=== PATIENT | female | born 1990 | race Two or more races ===

== ENCOUNTER 2018-08-12 06:34 | Inpatient (IN) | payer OTHER ==
[2018-08-10 16:50] VITALS: BMI 18.5
--- NOTE | 2018-08-11 11:25 | HP ---
Admitting History and Physical - Primary Care Physician PCP: Bartolo Orozco - Admission Chief Complaint: right breast abscess with necrotic tissue History of Present Illness: 27 year old nulliparous premenapausal female who was found to be pancytopenic and was admitted to [facility] 05/2018 and was found to be CMV + and was placed on Neuprogen and cipro. She developed right breast mastitis and was told to use warm compresses and sent home but ended up getting burned and transfered to [facility]. She was treated with vanco,acyclovir and antifungal and did have improvement in her blood counts. She underwent an I and D of right breast at [facility] and there was no acute abscess but imflamatory tissue negative cultures. The wound became ischemic and developed eschar over nipple and areolar complex. and she was found to have a lupus and antiphospholipid antibody and was placed on tapering steroids,bactrim, plaquenel and is on coumadin and ASA . She has received Hyperbaric treatments with some improvement and is her for debridement of right breast and placement of wound vac by Dr Tovar. History Source: Patient Limitations to Obtaining History: No Limitations - Past Medical History ...LMP: 07/15/18 Additional Past Medical History: MONICA positive pancytopenia,SCV trombosis renal infarct, CMV positive lupus with antiphospholipid syndrome - Past Surgical History Past Surgical History: Yes: Appendectomy (at 10 yrs old) Additional Past Surgical History: I and D breast 05/2018 - Smoking History Smoking history: Never smoked - Alcohol/Substance Use Hx Alcohol Use: No Home Medications - Allergies Allergies/Adverse Reactions: Allergies Allergy/AdvReac Type Severity Reaction Status Date / Time vancomycin Allergy Itching Verified 08/10/18 16:50 - Home Medications Home Medications (free text): fluconozole ASA acyclovir folic acid prednisone, bactrim Hydrochloroquinine, warfarin pantaprozole Family Disease History - Family Disease History Family History: Denies Physical Examination Constitutional: Yes: Well Nourished Breast(s): Yes: Other ( A cup breast with obvious necrosis eschar in central region with entire loss of nipple areolar complex. No signs of infection but open wounds superior and inferior aspect of right breast) Problem List - Problems (1) Abscess of right breast Code(s): N61.1 - ABSCESS OF THE BREAST AND NIPPLE Assessment/Plan Right breast debridement and wound vac with Dr Tovar
[2018-08-12 07:01] LABS: BASO % 0.8 % (0-2.0); EOS % 1.4 % (0-4.5); HEMATOCRIT 33.4 % (32.4-45.2); HEMOGLOBIN 11.5 GM/dL (10.7-15.3); LYMPH % 44.8 % (8-40); MCHC 34.5 g/dl (32.0-36.0); MEAN PLT VOLUME 7.7 fl (7.5-11.1); MONO % 10.9 % (3.8-10.2); NEUT % 42.1 % (42.8-82.8); PLATELET COUNT 255 K/MM3 (134-434); RBC 4.12 M/mm3 (3.60-5.2); RDW 17.6 % (11.6-15.6)
[2018-08-12 07:28] LABS: INR 1.92 (0.83-1.09); PROTHROMBIN TIME (PATIENT) 22.8 SEC (9.7-13.0)
[2018-08-12] MEDS ORDERED: MIDAZOLAM HCL 2 MG/2 ML SINGLE DOSE VIAL ONE ×2 (08:12)
[2018-08-12] MEDS ORDERED: DEXTROSE 5%-0.45% SALINE 1,000 ML IV SCH (08:45)
[2018-08-12] MEDS ORDERED: ONDANSETRON 4 MG/2 ML VIAL IVPUSH PRN ×2 (08:58→10:52)
[2018-08-12] MEDS ORDERED: LACTATED RINGERS SOLUTION 1,000 ML IV SCH (09:00)
[2018-08-12] MEDS ORDERED: PROPOFOL 20 ML ONE (09:11)
[2018-08-12] MEDS ORDERED: ceFAZolin SODIUM 1 GM VIAL IVPB ONE (09:19)
[2018-08-12] MEDS ORDERED: ceFAZolin SODIUM 1 GM VIAL ONE (09:24)
[2018-08-12 11:04] LABS: ACTIVATED PTT 73.8 SECONDS (25.2-36.5)
--- NOTE | 2018-08-12 11:14 | OP ---
DATE OF OPERATION: 08/12/2018 PREOPERATIVE DIAGNOSES: Right breast necrosis and infection. POSTOPERATIVE DIAGNOSES: Right breast necrosis and infection. PROCEDURE: Incision sharply and debridement of right breast with vacuum-assisted closure dressing application. ANESTHESIA: General, laryngeal mask airway anesthesia. PRIMARY SURGEON: Issac Orozco MD. PLASTIC SURGEON FOR VACUUM-ASSISTED CLOSURE DRESSING PLACEMENT: Lexx Tovar MD COMPLICATIONS: There were no complications. Briefly the patient is a 27-year-old nulliparous premenopausal female of [place] descent. The patient was diagnosed with antiphospholipid antibody syndrome and developed fevers, fatigue and pancytopenia in May 2018. 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 She underwent an incision and drainage at [facility] by another surgeon. However, the wound never healed. She developed central right breast necrosis. In the meantime she was being treated for the antiphospholipid antibody syndrome and was placed on steroids and her pancytopenia resolved and her general health improved. She had some stable necrosis of the right breast and was getting hyperbaric oxygen treatments; however, developed some sepsis with positive blood cultures and it was felt that debridement of the necrotic right breast should be performed. The patient was brought in through same day surgery on August 12, 2018, to [facility]. In the holding area site verification was made and informed consent was obtained. The patient was brought into the operating room and laid on the OR table in a supine position. Venodynes were placed on the lower extremities. She received a gram of Ancef prior to incision. She underwent general laryngeal mask airway anesthesia. The right breast was sterilely prepped and draped in the usual fashion. We sharply debrided the central aspect of the entire right breast removing the entire nipple-areolar complex and tissue was noted to be necrotic all the way down to the chest wall. Tissue was debrided back to good bleeding tissue and hemostasis was achieved using electrocautery. The tissue was all sent to Pathology for evaluation. At this point, Dr. Lexx Tovar became the primary surgeon. He performed the VAC dressing placement on the right breast. The patient tolerated the procedure well and will be recovered and admitted for a 23-hour admit to arrange social media executive for VAC wound care. The patient had an estimated blood loss of about 10 mL and was hemodynamically stable throughout the entire case. All sponge and needle counts were correct at the end of the case. ISSAC OROZCO M.D. [id number]
[2018-08-12 11:51] LABS: ACANTHOCYTES 0; ANISOCYTOSIS 0; HELMET CELLS 0; HOWELL-JOLLY BODIES 0; MACROCYTOSIS 0; OVALOCYTE 0; PLATELET ESTIMATE NORMAL; ROULEAU 0; SICKELED CELLS 0; TARGET CELLS 0; TEAR DROP CELLS 0; TOXIC GRANULATION 0
[2018-08-12] MEDS ORDERED: ACETAMINOPHEN 325 MG TABLET (FP) PO PRN (12:18)
[2018-08-12] MEDS ORDERED: oxyCODONE HCL 5 MG TABLET PO PRN (12:23)
--- NOTE | 2018-08-12 13:25 | OP ---
DATE OF OPERATION: 08/12/2018 TITLE OF PROCEDURE: Right breast debridement and negative wound pressure dressing application. ATTENDING SURGEON: Giselle Tovar MD LUNCHROOM AIDE: Bartolo Orozco MD PREOPERATIVE DIAGNOSIS: Centrally necrotic breast tissue on the right breast. POSTOPERATIVE DIAGNOSIS: Centrally necrotic breast tissue on the right breast. ANESTHESIA: General endotracheal. Patient is seen in the holding area. This is a consultation from Dr. Bartolo Orozco. The history is that this is a 27-year-old female with systemic lupus, who after a series of complicated events to the right breast, suffered a necrosis of the nipple-areola and central mound of the right breast. This has been treated with hypobaric oxygen and dressing changes. However, the patient has had several episodes of wound infection requiring inpatient stay and IV antibiotics, and recommendation by Dr. Orozco and the treating physicians is for debridement of the necrotic wound. Upon assessment, I agree. Risks, benefits, and alternatives to the family are explained, understood. They agree to proceed. DESCRIPTION OF PROCEDURE: Patient is placed in a supine position. A gram of Ancef is given preoperatively. Sequential compression stockings are applied preoperatively. She is prepped and draped in standard surgical fashion. A timeout is called. Patient, procedure, sites, and sides are verified. Dr. Orozco and I then assessed the clearly demarcated, nonviable tissue. The eschar was debrided and sent for surgical pathology. The excision was performed with a cold scalpel, and the extent of the incision was viable-appearing, bleeding tissue. Grossly necrotic tissue is all that is removed. The hemostasis is meticulously achieved, and the wound is copiously irrigated with normal saline. A VAC dressing is then applied and placed to 125 mm of continuous low suction with a good seal. The patient is awoken from anesthesia, having tolerated the procedure well, transferred to Recovery without complication. GISELLE TOVAR M.D. [id number]
[2018-08-12] MEDS ORDERED: CEFUROXIME AXETIL 250 MG TABLET PO SCH (15:00)
[2018-08-12] MEDS ORDERED: predniSONE 5 MG TABLET (UD) PO SCH (15:00)
[2018-08-12] MEDS: CEFUROXIME AXETIL 250 MG TABLET PO SCH (21:37)
[2018-08-13] MEDS: DEXTROSE 5%-0.45% SALINE 1,000 ML IV SCH (04:15)
[2018-08-13] MEDS: LACTATED RINGERS SOLUTION 1,000 ML IV SCH (04:16)
--- NOTE | 2018-08-13 07:38 | PN ---
Progress Note (short form) - Note Progress Note: POD 1 post debridement and VAC Pain is well controlled, no cellulitis, good seal Case management to arrange for 3x/wk vac changes at home Plan for discharge today with f/u me in 2 weeks
[2018-08-13] MEDS ORDERED: ENOXAPARIN NA (PORCINE) 40 MG/0.4 ML DISP.SYRIN SQ SCH (08:00)
--- NOTE | 2018-08-13 09:57 | PN ---
Progress Note, Physician Chief Complaint: S/P debridement of necrotic wound of right breast POD#1 History of Present Illness: Patient was seen today at the bedside and reports pain in the right breast otherwise without any other complaints. - Current Medication List Current Medications: Active Medications Acetaminophen (Tylenol -) 325 mg PO Q4H PRN PRN Reason: PAIN LEVEL 1-5 Cefuroxime Axetil (Ceftin -) 250 mg PO BID [facility] Last Admin: 08/12/18 21:37 Dose: 250 mg Enoxaparin Sodium (Lovenox -) 40 mg SQ DAILY [facility] Dextrose/Sodium Chloride (D5-1/2ns -) 1,000 mls @ 100 mls/hr IV ASDIR [facility] Last Admin: 08/13/18 04:15 Dose: 100 mls/hr Lactated Ringer's (Lactated Ringers Solution) 1,000 mls @ 125 mls/hr IV ASDIR [facility] Last Admin: 08/13/18 04:16 Dose: Not Given Ondansetron HCl (Zofran Injection) 4 mg IVPUSH Q6H PRN PRN Reason: NAUSEA AND/OR VOMITING Stop: 08/13/18 10:51 Oxycodone HCl (Roxicodone -) 5 mg PO Q4H PRN PRN Reason: PAIN LEVEL 1-5 Prednisone (Deltasone -) 5 mg PO DAILY [facility] - Objective Vital Signs: Vital Signs Temperature 98.0 F 08/13/18 06:00 Pulse Rate 79 08/13/18 06:00 Respiratory Rate 16 08/13/18 06:00 Blood Pressure 103/66 08/13/18 06:00 O2 Sat by Pulse Oximetry (%) 99 08/12/18 23:50 Constitutional: Yes: Well Nourished, Calm Breast(s): Yes: Right (Right breast with Vac dressing in place with good seal. No active bleeding noted. No surrounding erythema noted.) Labs: CBC, BMP 08/12/18 06:53 INR, PTT INR 1.92 (0.83-1.09) H 08/12/18 06:53 Problem List - Problems (1) Abscess of right breast Code(s): N61.1 - ABSCESS OF THE BREAST AND NIPPLE Assessment/Plan Assessment: Patient is POD #1 from a debridement of necrotic wound of the central right breast. Plan: Plan for discharge with wound vac to accelerate wound healing without complications Patient is to continue Coumadin and axbx at home. Patient to see Dr. Tovar in 2 weeks
[2018-08-13] MEDS: CEFUROXIME AXETIL 250 MG TABLET PO SCH ×2 (09:59→21:26)
[2018-08-13] MEDS: predniSONE 5 MG TABLET (UD) PO SCH (09:59)
[2018-08-13] MEDS: ENOXAPARIN NA (PORCINE) 40 MG/0.4 ML DISP.SYRIN SQ SCH (10:00)
[2018-08-13] MEDS: HYDROXYCHLOROQUINE SO4 200 MG TABLET (FP) PO SCH (13:23)
[2018-08-14 06:19] VITALS: BP 101/58; PULSE 78; TEMP 98.6
[2018-08-14] MEDS ORDERED: PT OWN MED DRAWER 7, Y5N ONE (09:32)
[2018-08-14] MEDS: HYDROXYCHLOROQUINE SO4 200 MG TABLET (FP) PO SCH (09:33)
[2018-08-14] MEDS: predniSONE 5 MG TABLET (UD) PO SCH (09:34)
[2018-08-14] MEDS: ENOXAPARIN NA (PORCINE) 40 MG/0.4 ML DISP.SYRIN SQ SCH (09:34)
[2018-08-14] MEDS: LACTATED RINGERS SOLUTION 1,000 ML IV SCH (09:34)
[2018-08-14] MEDS: CEFUROXIME AXETIL 250 MG TABLET PO SCH (09:34)
[2018-08-14] MEDS: DEXTROSE 5%-0.45% SALINE 1,000 ML IV SCH (11:48)
--- NOTE | 2018-08-16 09:42 | PATH ---
Surgical Pathology Report Patient Name: EMIL LEONARD [facility]. Rec. #: [id number] /Age/Gender: 1990 (Age: 27) / F Account: [id number] Location: [address] [place] [address]/[facility] Taken: 08/12/2018 Received: 08/12/2018 Reported: 08/16/2018 Physicians: Bartolo Orozco M.D. Specimen(s) Received RIGHT BREAST DEBRIDED TISSUE Clinical History Right breast mastitis Final Diagnosis RIGHT BREAST DEBRIDED TISSUE, EXCISION: SKIN AND BREAST TISSUE SHOWING NECROSIS, RECENT AND OLD HEMORRHAGE (HEMOSIDERIN LADEN MACROPHAGES), SEVERE ACUTE AND CHRONIC INFLAMMATION WITH FOCAL ABSCESS FORMATION. Electronically Signed Geo Middleton M.D. Gross Description Received in formalin labeled "right breast debrided tissue," is an 8.0 x 6.0 x 2.6 cm aggregate necrotic skin and soft tissue. Catar[employer]ator sections are submitted in one cassette. /08/12/2018 saudi08/12/2018
== END 2018-08-14 20:30 | disposition home or self-care (01) | DRG 363 ==
LOC: UNDOADMIN 06:34 → JASUSAT 06:34 → JSAMEDAYSX 06:34 → EDSTATUS 08:00 → J6S 18:22 → JASUSAT 08-13 15:27 → J6S 08-13 15:28
PROVIDERS: ADMIT Surgery Surgical Oncology; ATTEND Surgery Surgical Oncology
PROC: 2W14X6Z Compression of Chest Wall using Pressure Dressing (ICD-10-PCS; 2018-08-12)
PROC: 0HBT0ZZ Excision of Right Breast, Open Approach (ICD-10-PCS; principal; 2018-08-12 08:00)
DX: N61.0 Mastitis without abscess (principal); N64.1 Fat necrosis of breast; B25.9 Cytomegaloviral disease, unspecified; M32.9 Systemic lupus erythematosus, unspecified; D68.61 Antiphospholipid syndrome
CPT/HCPCS: 36415; 84703; 85025; 85610; 85730; 88304-TC; 94760